=== PATIENT | female | born 1990 | race African-American/Black ===

== ENCOUNTER 2016-06-21 11:51 | Emergency (ER) | payer OTHER ==
[~2016-06-21] VITALS: Ht 167.6 cm; Wt 72.6 kg
[~2016-06-21 11:51] MED LIST: DICY20TA30 PO; FAMO20TA5 PO; MAGN296S PO
[2016-06-21 12:47] VITALS: BP 129/73
[2016-06-21] MEDS ORDERED: CEFTRIAXONE IM 250 MG VIAL. IM ONE (13:15)
[2016-06-21] MEDS ORDERED: AZITHROMYCIN 250 MG TABLET PO ONE (13:15)
[2016-06-21] MEDS ORDERED: LIDO:MAALOX:DONNATAL 1:1:1 15 ML SINGLE DOSE SWSW ONE (13:15)
[2016-06-21] MEDS ORDERED: FAMOTIDINE 20 MG TABLET. PO ONE (13:15)
[2016-06-21] MEDS ORDERED: ONDANSETRON ODT 4 MG TAB.RAPDIS PO ONE (13:15)
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
[2016-06-21 13:26] LABS: BILIRUBIN,URINE NEGATIVE (NEG); GLUCOSE,URINE NEGATIVE (NEG); NITRITE,URINE NEGATIVE (NEG); PROTEIN,URINE NEGATIVE (NEG-TRACE)
[2016-06-21 13:39] LABS: BACTERIA,URINE 0 /HPF (0-FEW); RBC,URINE 0 /HPF (0-2); SQUAMOUS EPITHELIAL CELL,UR MANY /LPF
[2016-06-21] MEDS ORDERED: NITR100C62 PO (13:55)
[2016-06-21] MEDS ORDERED: OMEP20CA9 PO (13:55)
== END 2016-06-21 14:02 | disposition home or self-care (01) ==
LOC: ER 11:51
DX: N39.0 Urinary tract infection, site not specified (principal); K21.9 Gastro-esophageal reflux disease without esophagitis
CPT/HCPCS: 81001; 81025; 87086; 87491; 87591; 96372; 99284; J0696; Q0144; Q0162

== ENCOUNTER 2017-10-21 01:56 | Emergency (ER) | payer OTHER ==
[2017-10-21] MEDS: IV NORMAL SALINE 1000ML BAG 1,000 ML IV (02:56)
[2017-10-21] MEDS: 0.9 % SODIUM CHLORIDE 10 ML DISP.SYRIN. IV (02:56)
[2017-10-21] MEDS ORDERED: ACETAMINOPHEN 325 MG TABLET. PO (03:00)
[2017-10-21 04:34] LABS: BILIRUBIN,URINE NEGATIVE (NEG); CLARITY,URINE CLEAR; COLOR,URINE YELLOW; GLUCOSE,URINE 100 mg/dL (NEG); NITRITE,URINE NEGATIVE (NEG); PH,URINE 6.5; PROTEIN,URINE NEGATIVE (NEG-TRACE); UROBILINOGEN,URINE 0.2 mg/dL (0.2 mg/dL)
[2017-10-21 04:41] LABS: BARBITURATES NEG (NEG); BENZODIAZEPINES NEG (NEG); CANNABINOIDS NEG (NEG); COCAINE NEG (NEG); METHADONE NEG (NEG); OPIATES NEG (NEG); PHENCYCLIDINE NEG (NEG)
[2017-10-21 04:42] LABS: AMPHETAMINE/METHAMPHETAMINE NEG (NEG); ETHANOL, URINE NEG (NEG)
[2017-10-21 04:46] LABS: BACTERIA,URINE MANY /HPF (0-FEW); SQUAMOUS EPITHELIAL CELL,UR MANY /LPF; WBC,URINE TNTC /HPF (0-4)
[2017-10-21 05:20] LABS: ADD MAN DIFF? NO
[2017-10-21 05:37] LABS: BASO % 0 % (0-3); EOS % 0 % (0-3); HEMATOCRIT 28.4 % (36.0-47.0); HEMOGLOBIN 8.9 g/dL (12.0-15.5); LYMPH # 1.2 x10^3/uL (1.0-4.8); LYMPH % 12 % (24-48); MEAN CORPUSCULAR HEMOGLOBIN 22 pg (25-35); MEAN CORPUSCULAR HGB CONC 32 g/dL (31-37); MEAN CORPUSCULAR VOLUME 70 fL (79-100); MONO # 0.7 x10^3/uL (0.0-1.1); MONO % 7 % (0-9); NEUT # 7.7 x10^3uL (1.8-7.7); NEUT % 80 % (31-73); PLATELET COUNT 267 x10^3/uL (140-400); RED BLOOD COUNT 4.05 x10^6/uL (3.50-5.40); RED CELL DISTRIBUTION WIDTH 19.6 % (11.5-14.5); WHITE BLOOD COUNT 9.7 x10^3/uL (4.0-11.0)
[2017-10-21] MEDS ORDERED: IV RINGERS,LACTATED 1000ML 1,000 ML IV (10:00)
[2017-10-21 10:02] LABS: PLT ESTIMATE ADEQUATE (ADEQUATE)
[2017-10-21 10:03] LABS: ANISOCYTOSIS SLIGHT; HYPOCHROMIA MOD; MICROCYTOSIS MOD
== END 2017-10-21 02:21 | disposition home or self-care (01) ==
LOC: 3 SO LND 01:56 → ED HOLD 03:58 → 3 SO LND 03:58 → ER 13:59
DX: O26.893 Other specified pregnancy related conditions, third trimester (principal); R10.9 Unspecified abdominal pain; V49.88XA Car occupant (driver) (passenger) injured in other specified transport accidents, initial encounter; Y93.89 Activity, other specified; Y99.8 Other external cause status; Y92.488 Other paved roadways as the place of occurrence of the external cause
CPT/HCPCS: 36415; 76805; 80307; 81001; 85025; 85460; 86850; 86900; 86901; 87086; 99285-25; J7030

== ENCOUNTER 2017-10-21 01:56 | Observation (INO) | payer SELFPAY ==
[2017-10-21] MEDS: ACETAMINOPHEN 325 MG TABLET. PO (09:59)
== END 2017-10-21 10:45 | disposition home or self-care (01) ==
LOC: ER 02:16 → 3 SO LND 03:46
DX: O26.893 Other specified pregnancy related conditions, third trimester (principal); R10.9 Unspecified abdominal pain; Z3A.31 31 weeks gestation of pregnancy
CPT/HCPCS: 99285; G0378; G0379

== ENCOUNTER 2018-05-23 12:31 | Emergency (ER) | payer MEDICAID, OTHER ==
[~2018-05-23] VITALS: Ht 167.6 cm; Wt 77.1 kg
[~2018-05-23 12:31] MED LIST changes: -MAGN296S PO; +MAGN296S9 PO; +NITR100C62 PO; +OMEP20CA9 PO
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
[2018-05-23] MEDS ORDERED: CONTRAST GIVEN. MC PRN (13:30)
[2018-05-23 14:19] LABS: BASO % 0 % (0-3); EOS % 0 % (0-3); HEMATOCRIT 34.7 % (36.0-47.0); HEMOGLOBIN 10.9 g/dL (12.0-15.5); LYMPH # 1.1 x10^3/uL (1.0-4.8); LYMPH % 8 % (24-48); MEAN CORPUSCULAR HEMOGLOBIN 22 pg (25-35); MEAN CORPUSCULAR HGB CONC 32 g/dL (31-37); MEAN CORPUSCULAR VOLUME 71 fL (79-100); MONO % 8 % (0-9); NEUT # 10.9 x10^3uL (1.8-7.7); NEUT % 84 % (31-73); PLATELET COUNT 371 x10^3/uL (140-400); RED CELL DISTRIBUTION WIDTH 18.1 % (11.5-14.5)
[2018-05-23 14:30] LABS: CREATININE 0.9 mg/dL (0.6-1.0); GFR 90.9; POTASSIUM 3.4 mmol/L (3.5-5.1)
[2018-05-23 14:36] LABS: ALBUMIN 3.1 g/dL (3.4-5.0); ALBUMIN/GLOBULIN RATIO 0.6 (1.0-1.7); TOTAL BILIRUBIN 0.2 mg/dL (0.2-1.0); TOTAL PROTEIN 8.3 g/dL (6.4-8.2)
[2018-05-23 14:55] LABS: PLT ESTIMATE ADEQUATE (ADEQUATE)
[2018-05-23 14:56] LABS: ANISOCYTOSIS SLIGHT; HYPOCHROMIA MOD; MICROCYTOSIS SLIGHT; POIKILOCYTOSIS SLIGHT
[2018-05-23 14:58] LABS: BILIRUBIN,URINE NEGATIVE (NEG); CLARITY,URINE CLEAR; COLOR,URINE YELLOW; NITRITE,URINE NEGATIVE (NEG); PH,URINE 6.5; PROTEIN,URINE NEGATIVE (NEG-TRACE)
[2018-05-23] MEDS: IOHEXOL 300 MG/ML 100ML VIAL. IV ONE (14:58)
[2018-05-23 15:11] LABS: BACTERIA,URINE FEW /HPF (0-FEW); RBC,URINE 0 /HPF (0-2); SQUAMOUS EPITHELIAL CELL,UR MOD /LPF
--- NOTE | 2018-05-23 15:27 | RAD ---
Examination: CT ABD PELV W/ IV CONTRST ONLY History: PERIRECTAL ABCESS X 1 week INJ 75ML OMNI 300 NO PREV PREV PELVIS REPAIR Comparison/Correlation: None Findings: Axial images of the abdomen and pelvis were obtained following IV contrast demonstration. Sagittal and coronal reformatted images were provided. Minimal linear scarring or atelectasis involving the right middle lobe adjacent to mediastinum is noted. Cholecystectomy is evident. Liver, spleen, pancreas, and adrenal glands are normal. Kidneys are normal. Inferior vena cava filter is present at the infrarenal level. No extraluminal gas. No obstruction. Appendix is normal. Ileocecal valve region is unremarkable. Uterus is unremarkable. Tubal ligation clips bilaterally seen. Small amount of pelvic free fluid is present. Adnexal follicles are unremarkable. A screw is noted to traverse the right sacroiliac joint superiorly and another screw is present at the left sacroiliac joint superiorly. Old left pelvic ring fractures are present. Old left inferior pubic ring fracture suggested. Right adnexal rim-enhancing follicles present and likely representing a corpus luteum cyst. Subcutaneous stranding is noted involving the medial left buttock region. This measures up to 5.6 cm anteroposterior by 2.8 cm transverse by at least 4.7 cm longitudinal. This extends beyond the [id number]. It extends to the posterior anal region. It is not fully included on this exam. Impression: Stranding involving the medial left buttock subcutaneous fat is noted extending to the anal region. No loculated collection on the images provided. The entire extent of this process was not included. Further imaging of the very proximal thigh level to include this process should be considered. Minimal pelvic free fluid is visualized in appearance. Electronically signed by: Kunal Cabello MD (05/23/2018 3:23 PM) [id number]
[2018-05-23 15:46] VITALS: BP 108/60
[2018-05-23] MEDS ORDERED: CEPH-264 PO (16:11)
[2018-05-23] MEDS ORDERED: SULF1TAB24 PO (16:11)
[2018-05-23] MEDS ORDERED: HYDR-3164 PO (16:11)
[2018-05-23] MEDS: IBUPROFEN 600 MG TABLET. PO ONE (16:28)
== END 2018-05-23 16:28 | disposition home or self-care (01) ==
LOC: ER 12:31
DX: K61.1 Rectal abscess (principal)
CPT/HCPCS: 36415; 74177; 80053; 81001; 81025; 83605; 85025; 87040; 99284; Q9967

== ENCOUNTER 2018-10-30 19:18 | Emergency (ER) | payer OTHER ==
[~2018-10-30] VITALS: Ht 170.2 cm; Wt 81.6 kg
[~2018-10-30 19:18] MED LIST changes: +CEPH-264 PO; +HYDR-3164 PO; +OMEP20CA10 PO; -OMEP20CA9 PO; +SULF1TAB24 PO
[2018-10-30 20:03] LABS: BILIRUBIN,URINE NEGATIVE (NEG); CLARITY,URINE CLEAR; COLOR,URINE YELLOW; NITRITE,URINE NEGATIVE (NEG); PROTEIN,URINE NEGATIVE (NEG-TRACE)
[2018-10-30 20:08] LABS: BACTERIA,URINE FEW /HPF (0-FEW); RBC,URINE 0 /HPF (0-2); SQUAMOUS EPITHELIAL CELL,UR OCC /LPF
[2018-10-30 20:18] VITALS: BP 135/70
[2018-10-30] MEDS ORDERED: metroNIDAZOLE 500 MG TABLET PO ONE (20:30)
[2018-10-30] MEDS ORDERED: cefTRIAXone IM 250 MG VIAL IM ONE (20:30)
[2018-10-30] MEDS ORDERED: AZITHROMYCIN 250 MG TABLET. PO ONE (20:30)
[2018-10-30] MEDS ORDERED: METR500T PO (20:48)
[2018-10-30] MEDS ORDERED: SULF1TAB24 PO (20:48)
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
[2018-11-04 13:08] LABS: GC PROBE Negative (Negative)
== END 2018-10-30 20:54 | disposition home or self-care (01) ==
LOC: ER 19:18
DX: N76.0 Acute vaginitis (principal); B96.89 Other specified bacterial agents as the cause of diseases classified elsewhere; N39.0 Urinary tract infection, site not specified; Z20.2 Contact with and (suspected) exposure to infections with a predominantly sexual mode of transmission; Z90.49 Acquired absence of other specified parts of digestive tract; Z98.51 Tubal ligation status
CPT/HCPCS: 81001; 81025; 87491; 87591; 96372; 99284; J0696; Q0111; Q0144

== ENCOUNTER 2019-12-12 10:50 | Emergency (ER) | payer OTHER ==
[~2019-12-12] VITALS: Ht 167.6 cm; Wt 81.8 kg
[~2019-12-12 10:50] MED LIST changes: +MAGN296S68 PO; -MAGN296S9 PO; +METR-34 PO; +METR500T PO; -OMEP20CA10 PO; +OMEP20CA16 PO
[2019-12-12 11:25] VITALS: BP 127/71
[2019-12-12 11:45] LABS: BILIRUBIN,URINE NEGATIVE (NEG); CLARITY,URINE CLEAR; COLOR,URINE AMBER; NITRITE,URINE NEGATIVE (NEG); PROTEIN,URINE NEGATIVE (NEG-TRACE)
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
[2019-12-12 11:59] LABS: SQUAMOUS EPITHELIAL CELL,UR FEW /LPF
[2019-12-12 12:00] LABS: BACTERIA,URINE 0 /HPF (0-FEW); RBC,URINE 0 /HPF (0-2)
[2019-12-12] MEDS ORDERED: METR500T PO (12:14)
[2019-12-12] MEDS ORDERED: metroNIDAZOLE 500 MG TABLET PO ONE (12:45)
[2019-12-12] MEDS ORDERED: cefTRIAXone IM 250 MG VIAL IM ONE (12:45)
[2019-12-12] MEDS ORDERED: AZITHROMYCIN 250 MG TABLET. PO ONE (12:45)
[2019-12-14 00:09] LABS: GC PROBE Negative (Negative)
== END 2019-12-12 12:35 | disposition home or self-care (01) ==
LOC: ER 10:50
DX: Z20.2 Contact with and (suspected) exposure to infections with a predominantly sexual mode of transmission (principal); N76.0 Acute vaginitis; B96.89 Other specified bacterial agents as the cause of diseases classified elsewhere; Z90.49 Acquired absence of other specified parts of digestive tract; Z98.51 Tubal ligation status; Z87.891 Personal history of nicotine dependence
CPT/HCPCS: 81001; 81025; 87491; 87591; 96372; 99283; J0696; Q0111